=== PATIENT | male | born 1985 | race Caucasian/White ===

== ENCOUNTER 2016-10-20 08:31 | Emergency (ER) | payer BC ==
[~2016-10-20] VITALS: Ht 182.9 cm; Wt 78.6 kg
[2016-10-20] MEDS ORDERED: DOXYCYCLINE HY100 MG PO (08:48)
[2016-10-20 08:52] VITALS: BP 120/67
== END 2016-10-20 08:52 | disposition home or self-care (01) ==
LOC: EME 08:31
DX: L72.3 Sebaceous cyst (principal)
CPT/HCPCS: 99281; 99283